=== PATIENT | male | born 1985 | race Caucasian/White ===

== ENCOUNTER 2020-11-28 13:00 | Emergency (ER) | payer BC, OTHER ==
[2020-11-28] MEDS ORDERED: Diphtheria,Pertussis(Acell),Tetanus Vaccine 0.5 ML Syringe IM ONE (13:29)
[2020-11-28] MEDS ORDERED: Lidocaine 1% 10 ML MDV INJECT ONE (13:34)
--- NOTE | 2020-11-28 13:46 | EDM.PDOC ---
ED HPI GENERAL MEDICAL PROBLEM - General Chief Complaint: Upper Extremity Injury/Pain Stated Complaint: R MIDDLE FINGER INJURY Time Seen by Provider: 11/28/20 13:22 Source of Information: Reports: Patient, RN Notes Reviewed History Limitations: Reports: No Limitations - History of Present Illness INITIAL COMMENTS - FREE TEXT/NARRATIVE: Patient is a 35-year-old male who presents to the ER for having a piece of wire embedded within his right middle finger. Notes he was at work, trying to dislodge a piece of wire, and he ended up taking his work gloves off to grasp the wire because his gloves are slippery, and he pulled on the wire dislodging a piece of plastic that was encompassing the wire and the wire got embedded in the anterior portion of the patient's right third finger, between the PIP and DIP joint. States that he did try dislodging this however it became too painful and he could not do this himself. He went to an occupational clinic in [place], but they were not "licensed" to do anything about it so his work sent him here. He notes that he is not up-to-date on his tetanus vaccination. States that he is a healthy individual otherwise, patient denies any other sick-like symptoms, fever/chills, cough/shortness of breath, nausea/vomiting/diarrhea. States he is not having any numbness or tingling distal to the injury, and he can move his finger in all range of motion without difficulty. - Related Data Allergies Allergy/AdvReac Type Severity Reaction Status Date / Time bupropion [From Wellbutrin] Allergy Joint Pain Verified 11/28/20 13:28 Home Meds: Home Meds cephALEXin [Cephalexin] 500 mg PO QID #28 capsule 11/28/20 [Rx] Past Medical History - Past Health History Medical/Surgical History: Denies Medical/Surgical History Social & Family History - Tobacco Use Tobacco Use Status *Q: Never Tobacco User - Recreational Drug Use Recreational Drug Use: No Review of Systems - Review of Systems Review Of Systems: Comprehensive ROS is negative, except as noted in HPI. ED EXAM, GENERAL - Physical Exam Exam: See Below Exam Limited By: No Limitations General Appearance: Alert, WD/WN, No Apparent Distress Respiratory/Chest: No Respiratory Distress, Lungs Clear, Normal Breath Sounds, No Accessory Muscle Use, Chest Non-Tender Cardiovascular: Normal Peripheral Pulses, Regular Rate, Rhythm, No Edema Peripheral Pulses: 2+: Radial (L), Radial (R) Extremities: Normal Range of Motion, Normal Capillary Refill Neurological: Alert, Oriented, Normal Cognition, No Motor/Sensory Deficits Psychiatric: Normal Affect, Normal Mood Skin Exam: Warm, Dry, Normal Color, No Rash, Wound/Incision (There is a rather large piece of wire embedded within the patient's right middle finger, between the PIP and DIP joint, the area surrounding the embedded wire, has a roughly 1 cm linear laceration.) ED TRAUMA EXTREMITY PROCEDURES - Laceration/Wound Repair Right Anterior Lateral Digit - 3rd (Middle) Lac/Wound Length In cm: 1.5 Appearance: Subcutaneous, Mildly Contaminated Distal NVT: Neuro & Vascular Intact, No Tendon Injury Anesthetic Type: Local Local Anesthesia - Lidocaine (Xylocaine): 1% Plain Local Anesthetic Volume: 5cc Skin Prep: Chlorhexidine (Hibiciens), Saline Exploration/Debridement/Repair: Wound Explored, In a Bloodless Field, Explored to Base, Foreign Material Removed (A piece of wire was embedded in the patient's finger, this was successfully removed without any apparent nerve damage or other musculoskeletal damage.) Closed With: Sutures Suture Size: 4-0 # of Sutures: 5 Suture Type: Prolene, Interrupted, Simple Sterile Dressing Applied: Nurse Tetanus Status Addressed: Yes Complications: No Course - Vital Signs Last Recorded V/S: Last Vital Signs Temp 97.8 F 11/28/20 13:26 Pulse 71 11/28/20 13:26 Resp 16 11/28/20 13:26 BP 144/87 H 11/28/20 13:26 Pulse Ox 98 11/28/20 13:26 - Orders/Labs/Meds Orders: Active Orders 24 hr Category Date Time Status Fingers Third Digit Rt F7 [CR] Stat Exams 11/28/20 13:33 Taken Meds: Medications Discontinued Medications Generic Name Dose Route Start Last Admin Trade Name Freq PRN Reason Stop Dose Admin Diphtheria/Tetanus/Acell Pertussis 0.5 ml 11/28/20 13:29 11/28/20 13:35 Diphtheria,Pertussis(Acell),Tetanus Vaccine 0.5 Ml Syringe IM 11/28/20 13:30 0.5 ml .ONCE ONE Administration Lidocaine HCl 10 ml 11/28/20 13:34 11/28/20 13:39 Lidocaine 1% 10 Ml Mdv INJECT 11/28/20 13:35 10 ml ONETIME ONE Administration Departure - Departure Time of Disposition: 14:50 Disposition: Home, Self-Care 01 Condition: Good Clinical Impression: Foreign body of finger Finger laceration Qualifiers: Encounter type: initial encounter Finger: middle finger Damage to nail status: without damage Foreign body presence: with foreign body Laterality: right Qualified Code(s): S61.222A - Laceration with foreign body of right middle finger without damage to nail, initial encounter - Discharge Information *PRESCRIPTION DRUG MONITORING PROGRAM REVIEWED*: No *COPY OF PRESCRIPTION DRUG MONITORING REPORT IN PATIENT ELIZABET: No Prescriptions: cephALEXin [Cephalexin] 500 mg PO QID #28 capsule Instructions: Laceration Care, Adult, [id number] Referrals: PCP,Not In Area [Primary Care Provider] - Forms: ED Department Discharge, ED Return to Work/School Form Additional Instructions: You have been evaluated in the ED for your laceration. Sutures will need to stay in for 10 to 14 days. The wire that was embedded in your finger, was successfully removed and is thought to be intact at today's visit. You have been started on an antibiotic called cephalexin, you will need to take 1 tablet 4 times a day, for the next 7 days. Your medications have been electronically prescribed to the [facility] located in the [employer] [facility]. Please start taking those tonight, 1 as soon as you get home, and another one tonight a little bit later. You may return to the ED or any clinic for removal. Please keep this area clean and dry, you may cleanse with regular soap and water. No vigorous scrubbing. Please try to avoid submerging the affected area in water for prolonged periods of time until the sutures are removed. Watch out for signs of infection like increased redness, swelling, pain at the laceration site, or if you should develop any fevers or chills. Please return to ED if your symptoms change or worsen. Sepsis Event Note (ED) - Evaluation Sepsis Screening Result: No Definite Risk - Focused Exam Vital Signs: Vital Signs Temp Pulse Resp BP Pulse Ox 11/28/20 13:26 97.8 F 71 16 144/87 H 98 - My Orders Last 24 Hours: My Active Orders 11/28/20 13:33 Fingers Third Digit Rt F7 [CR] Stat - Assessment/Plan Last 24 Hours: My Active Orders 11/28/20 13:33 Fingers Third Digit Rt F7 [CR] Stat
--- NOTE | 2020-11-29 09:11 | CR ---
Right third finger: 4 views of the right third finger were obtained. Comparison: No prior hand or finger study is available. Metallic density is seen projected within the soft tissues of the third finger close to the PIP joint. No discrete osseous abnormality is seen. No other soft tissue foreign body is seen. Impression: 1. Soft tissue foreign body projected within the right third finger. 2. No acute osseous abnormality is appreciated. Diagnostic code #3
== END 2020-11-28 15:05 | disposition home or self-care (01) ==
LOC: JD.ED 13:00
DX: S61.222A Laceration with foreign body of right middle finger without damage to nail, initial encounter (principal); Z23 Encounter for immunization; W26.8XXA Contact with other sharp object(s), not elsewhere classified, initial encounter
CPT/HCPCS: 12001; 73140-26-F7; 73140-F7; 90471; 90715; 99283; 99283-25